=== PATIENT | male | born 1975 | race Caucasian/White ===

== ENCOUNTER → 2017-01-14 | Outpatient (CLI) | payer BC ==
--- NOTE | 2017-01-14 15:48 | RADIOLOGY REPORT PS360 ---
CHEST(2 VIEWS-NOT PORTABLE) HISTORY: SUPRACLAVICULAR MASS ORDERING PHYSICIAN: Dave Ventura MD PATIENT AGE: 41 years COMPARISON: None available FINDINGS: The cardiomediastinal silhouette and pulmonary vascularity are within normal limits. The lungs are clear without infiltrates, suspicious nodules, or pleural effusions. No acute bony abnormalities. IMPRESSION: Negative chest, no acute finding
--- NOTE | 2017-01-14 17:06 | RADIOLOGY REPORT PS360 ---
US SOFT TISSUE HEAD/NECK HISTORY: SUPRACLAVICULAR MASS ORDERING PHYSICIAN: Dave Ventura MD PATIENT AGE: 41 years COMPARISON: None FINDINGS: There is an ill-defined isoechoic region in the supraclavicular area on the left corresponding to palpable abnormality measuring approximately 7 x 2 x 5 cm. This is poorly homogeneous echogenicity with somewhat lacy pattern probably related to a lipoma. This may be confirmed with CT. No fluid collection or other significant anomalies evident. IMPRESSION: Palpable mass in the left supraclavicular area likely corresponds to a lipoma. This may be confirmed with CT
== END ==
LOC: RAD 01-03 10:00
DX: R22.2 Localized swelling, mass and lump, trunk (principal)